=== PATIENT | female | born 1990 | race Caucasian/White ===

== ENCOUNTER 2018-11-28 08:56 | Emergency (ER) | payer OTHER, SELFPAY ==
[2018-11-28] MEDS ORDERED: MORPHINE 4 MG/ML SYR ONE (09:45)
[2018-11-28] MEDS ORDERED: ONDANSETRON 4 MG/2 ML VIAL ONE (09:45)
[2018-11-28] MEDS ORDERED: NA CHLORIDE 0.9% 1,000 ML ONE (09:45)
--- NOTE | 2018-11-28 09:45 | ER ---
Nurse's Notes [facility] Name: Yamile Rahman Age: 28 yrs Sex: Female : 1990 Arrival Date: 11/28/2018 Time: 08:58 Bed 6 Private MD: Diagnosis: Abdominal tenderness;Urinary tract infection, site not specified Presentation: 11/28 09:12 Presenting complaint: Patient states: Pain to umbilical area that began last night with ss nausea. Patient states that the pain is sharp and tender. Transition of care: patient was not received from another setting of care. Onset of symptoms was November 28, 2018. Risk Assessment: Do you want to hurt yourself or someone else? Patient reports no desire to harm self or others. Initial Sepsis Screen: Does the patient meet any 2 criteria? No. Patient's initial sepsis screen is negative. Does the patient have a suspected source of infection? No. Patient's initial sepsis screen is negative. Care prior to arrival: None. 09:12 Method Of Arrival: Ambulatory ss 09:12 Acuity: ANCA 3 ss Historical: - Allergies: 09:14 tramadol; ss - Home Meds: 09:14 None [Active]; ss - PMHx: 09:14 None; ss - PSHx: 09:14 Femur repair; bilateral eyes; ss - Immunization history:: Adult Immunizations up to date. - Social history:: Smoking status: Patient/guardian denies using tobacco. - Ebola Screening: : Patient denies exposure to infectious person Patient denies travel to an Ebola-affected area in the 21 days before illness onset. Screenin:30 Abuse screen: Denies threats or abuse. Denies injuries from another. Nutritional ss screening: No deficits noted. Tuberculosis screening: Never had TB. Fall Risk None identified. Assessment: 09:30 General: Appears uncomfortable, Behavior is calm, cooperative, Denies fever, fatigue, ss chills. Pain: Complains of pain in umbilical area Pain radiates to right lower quadrant Pain currently is 8 out of 10 on a pain scale. Quality of pain is described as sharp, tender, Pain began "last night" Is continuous. Pain: Aggravated by increased activity, repositioning. Neuro: Level of Consciousness is awake, alert, obeys commands, Oriented to person, place, time, situation, Speech is normal. Cardiovascular: Capillary refill < 3 seconds is brisk in bilateral fingers Patient's skin is warm and dry. Respiratory: Airway is patent Respiratory effort is even, unlabored, Respiratory pattern is regular, symmetrical, Denies cough, shortness of breath. GI: Bowel sounds present X 4 quads. Abd is soft X 4 quads Abdomen is tender to palpation in umbilical area and right lower quadrant Guarding noted in umbilical area, suprapubic area and right lower quadrant Reports nausea, Patient currently denies diarrhea, vomiting. : No signs and/or symptoms were reported regarding the genitourinary system. Denies burning with urination, inability to void, urinary frequency. EENT: Oral mucosa is moist. Derm: Skin is intact, is healthy with good turgor, Skin is pink, warm \\T\\ dry. normal. Musculoskeletal: Circulation, motion, and sensation intact. Range of motion: intact in all extremities, Swelling absent. 09:59 Reassessment: Patient appears in no apparent distress at this time. Patient and/or ss family updated on plan of care and expected duration. Pain level reassessed. Patient is alert, oriented x 3, equal unlabored respirations, skin warm/dry/pink. pain is now 4/10. at bedside Patient states feeling better. Patient states symptoms have improved. 11:00 Reassessment: Patient appears in no apparent distress at this time. Patient and/or ss family updated on plan of care and expected duration. Pain level reassessed. Patient is alert, oriented x 3, equal unlabored respirations, skin warm/dry/pink. Vital Signs: 09:14 Resp 16; Weight 65.77 kg; Height 5 ft. 1 in. (154.94 cm); Pain 8/10; ss 09:21 BP 128 / 77; Pulse 75; Resp 16; Temp 98.2(TE); Pulse Ox 99% on R/A; ss 09:59 BP 115 / 67; Pulse 70; Resp 14; Pulse Ox 99% on R/A; Pain 4/10; ss 10:30 BP 111 / 79; Pulse 60; Resp 16; Pulse Ox 100% ; sv 11:04 BP 118 / 69; Pulse 72; Resp 18; Pulse Ox 100% ; sv 09:14 Body Mass Index 27.40 (65.77 kg, 154.94 cm) ED Course: 08:58 Patient arrived in ED. as 09:13 Triage completed. ss 09:14 Rivera Kent MD is Attending Physician. stone 09:14 Arm band placed on right wrist. ss 09:20 Nancy Mosqueda, CRUZ is Primary Nurse. ss 09:29 Radiology exam delayed due to lab results not completed at this time. test mw3 not completed at this time. 09:30 Patient has correct armband on for positive identification. Bed in low position. Call ss light in reach. 09:40 Inserted saline lock: 20 gauge in right antecubital area, using aseptic technique. ss Blood collected. Patient maintains SpO2 saturation greater than 95% on room air. 09:44 Estuardo Sevilla MD is Hospitalizing Provider. stone 09:[address] Scan. sv 10:56 CT completed. Patient tolerated procedure well. Patient moved back from CT. mw3 10:57 CT Abd/Pelvis - IV Contrast Only In Process Unspecified. EDMS 11:00 No provider procedures requiring assistance completed. IV discontinued, intact, ss bleeding controlled, No redness/swelling at site. Pressure dressing applied. Administered Medications: 09:38 Drug: NS 0.9% 1000 ml Route: IV; Rate: 1 bolus; Site: right antecubital; ss 10:38 Follow up: IV Status: Completed infusion; IV Intake: 1000ml ss 09:42 Drug: Zofran 4 mg Route: IVP; Site: right antecubital; ss 09:57 Follow up: Response: Nausea is decreased ss 09:43 Drug: morphine 4 mg Route: IVP; Site: right antecubital; ss 09:58 Follow up: Response: Pain is decreased ss 09:58 Drug: Rocephin 1 grams Route: IV; Rate: per protocol; Site: right antecubital; ss 10:03 Follow up: IV Status: Completed infusion ss Intake: 10:38 IV: 1000ml; Total: 1000ml. ss Outcome: 09:45 Decision to Hospitalize by Provider. stone 11:00 Discharged to home ambulatory, with family. ss 11:00 Condition: good 11:00 Discharge instructions given to patient, family, Instructed on discharge instructions, follow up and referral plans. medication usage, Demonstrated understanding of instructions, follow-up care, medications, Prescriptions given X 2. 11:38 Discharge ordered by . stone 11:53 Patient left the ED. ss Signatures: Dispatcher [employer] Kandi Scales RN RN sv Anderson, Corey, MD MD cha Martinez, Amelia as Smirch, Shelby, RN RN Gloria Espinal mw3 Corrections: (The following items were deleted from the chart) 09:21 09:12 Presenting complaint: Patient states: Pain to umbilical area that began this morning with nausea. Patient states that the pain is sharp and tender. 09:59 09:21 BP 128 / 77; Pulse 75bpm; Resp 16bpm; Temp 98.2F Temporal; [facility]
--- NOTE | 2018-11-28 09:46 | EDPHYS ---
Physician Documentation [facility] Name: Yamile Rahman Age: 28 yrs Sex: Female : 1990 Arrival Date: 11/28/2018 Time: 08:58 Bed 6 Private MD: ED Physician Rivera Kent HPI: 11/28 09:23 This 28 yrs old Female presents to ER via Ambulatory with complaints of stone Abdominal Pain, Headache. 09:23 The patient complains of pain to the forehead, left frontal area and right frontal stone area. The patient describes the headache as aching. Historical: - Allergies: 09:14 tramadol; ss - Home Meds: 09:14 None [Active]; ss - PMHx: 09:14 None; ss - PSHx: 09:14 Femur repair; bilateral eyes; ss - Immunization history:: Adult Immunizations up to date. - Social history:: Smoking status: Patient/guardian denies using tobacco. - Ebola Screening: : Patient denies exposure to infectious person Patient denies travel to an Ebola-affected area in the 21 days before illness onset. ROS: 09:24 Constitutional: Negative for fever, chills, and weight loss, Eyes: Negative for injury, stone pain, redness, and discharge, ENT: Negative for injury, pain, and discharge, Neck: Negative for injury, pain, and swelling, Cardiovascular: Negative for chest pain, palpitations, and edema, Respiratory: Negative for shortness of breath, cough, wheezing, and pleuritic chest pain, Back: Negative for injury and pain, : Negative for injury, bleeding, discharge, and swelling, MS/Extremity: Negative for injury and deformity, Skin: Negative for injury, rash, and discoloration, Neuro: Negative for headache, weakness, numbness, tingling, and seizure, Psych: Negative for depression, anxiety, suicide ideation, homicidal ideation, and hallucinations, Allergy/Immunology: Negative for hives, rash, and allergies, Endocrine: Negative for neck swelling, polydipsia, polyuria, polyphagia, and marked weight changes. 09:24 Abdomen/GI: Positive for abdominal pain, of the right lower quadrant and left lower quadrant. Exam: 09:24 Constitutional: This is a well developed, well nourished patient who is awake, alert, stone and in no acute distress. Head/Face: Normocephalic, atraumatic. Eyes: Pupils equal round and reactive to light, extra-ocular motions intact. Lids and lashes normal. Conjunctiva and sclera are non-icteric and not injected. Cornea within normal limits. Periorbital areas with no swelling, redness, or edema. ENT: Nares patent. No nasal discharge, no septal abnormalities noted. Tympanic membranes are normal and external auditory canals are clear. Oropharynx with no redness, swelling, or masses, exudates, or evidence of obstruction, uvula midline. Mucous membranes moist. Neck: Trachea midline, no thyromegaly or masses palpated, and no cervical lymphadenopathy. Supple, full range of motion without nuchal rigidity, or vertebral point tenderness. No Meningismus. Chest/axilla: Normal chest wall appearance and motion. Nontender with no deformity. No lesions are appreciated. Cardiovascular: Regular rate and rhythm with a normal S1 and S2. No gallops, murmurs, or rubs. Normal PMI, no JVD. No pulse deficits. Respiratory: Lungs have equal breath sounds bilaterally, clear to auscultation and percussion. No rales, rhonchi or wheezes noted. No increased work of breathing, no retractions or nasal flaring. Back: No spinal tenderness. No costovertebral tenderness. Full range of motion. Skin: Warm, dry with normal turgor. Normal color with no rashes, no lesions, and no evidence of cellulitis. MS/ Extremity: Pulses equal, no cyanosis. Neurovascular intact. Full, normal range of motion. Neuro: Awake and alert, GCS 15, oriented to person, place, time, and situation. Cranial nerves II-XII grossly intact. Motor strength 5/5 in all extremities. Sensory grossly intact. Cerebellar exam normal. Normal gait. Psych: Awake, alert, with orientation to person, place and time. Behavior, mood, and affect are within normal limits. 09:24 Abdomen/GI: Inspection: abdomen appears normal, Bowel sounds: normal, Palpation: moderate abdominal tenderness, in the right lower quadrant and left lower quadrant, Liver: no appreciated palpable abnormalities, Hernia: not appreciated. Vital Signs: 09:14 Resp 16; Weight 65.77 kg; Height 5 ft. 1 in. (154.94 cm); Pain 8/10; ss 09:21 BP 128 / 77; Pulse 75; Resp 16; Temp 98.2(TE); Pulse Ox 99% on R/A; ss 09:59 BP 115 / 67; Pulse 70; Resp 14; Pulse Ox 99% on R/A; Pain 4/10; ss 10:30 BP 111 / 79; Pulse 60; Resp 16; Pulse Ox 100% ; sv 11:04 BP 118 / 69; Pulse 72; Resp 18; Pulse Ox 100% ; sv 09:14 Body Mass Index 27.40 (65.77 kg, 154.94 cm) ss MDM: 09:14 Patient medically screened. [facility] 09:24 Data reviewed: vital signs, nurses notes, lab test result(s), radiologic studies, CT stone scan. 11/28 09:23 Order name: Basic Metabolic Panel; Complete Time: 10:41 [facility] 11/28 09:23 Order name: CBC with Diff; Complete Time: 10:12 [facility] 11/28 09:23 Order name: Creatinine for Radiology; Complete Time: 10:12 [facility] 11/28 09:23 Order name: Hepatic Function; Complete Time: 10:41 [facility] 11/28 09:23 Order name: Lipase; Complete Time: 10:41 [facility] 11/28 09:23 Order name: Urine Dipstick--Ancillary (enter results); Complete Time: 10:12 11/28 09:23 Order name: IV Saline Lock; Complete Time: 09:44 [facility] 11/28 09:23 Order name: CT Abd/Pelvis - IV Contrast Only; Complete Time: 11:37 [facility] 11/28 09:23 Order name: Urine --Ancillary (enter results); Complete Time: 10:12 11/28 09:43 Order name: Urine Culture [facility] 11/28 09:23 Order name: Labs collected and sent; Complete Time: 09:44 [facility] 11/28 09:23 Order name: Urine Dipstick-Ancillary (obtain specimen); Complete Time: 09:29 [facility] 11/28 09:23 Order name: Urine Test (obtain specimen); Complete Time: 09:29 [facility] Administered Medications: 09:38 Drug: NS 0.9% 1000 ml Route: IV; Rate: 1 bolus; Site: right antecubital; 10:38 Follow up: IV Status: Completed infusion; IV Intake: 1000ml 09:42 Drug: Zofran 4 mg Route: IVP; Site: right antecubital; ss 09:57 Follow up: Response: Nausea is decreased ss 09:43 Drug: morphine 4 mg Route: IVP; Site: right antecubital; ss 09:58 Follow up: Response: Pain is decreased ss 09:58 Drug: Rocephin 1 grams Route: IV; Rate: per protocol; Site: right antecubital; ss 10:03 Follow up: IV Status: Completed infusion ss Disposition: 11/28/18 11:38 Discharged to Home. Impression: Abdominal tenderness, Urinary tract infection, site not specified. - Condition is Stable. - Discharge Instructions: Abdominal Pain, Adult, Urinary Tract Infection, Adult, Abdominal Pain, Adult, [id number]. - Prescriptions for Tylenol- Codeine #3 300-30 mg Oral Tablet - take 2 tablets by ORAL route every 6 hours As needed; 20 tablet. Cipro 500 mg Oral Tablet - take 1 tablet by ORAL route every 12 hours for 7 days; 14 tablet. - Medication Reconciliation Form, Thank You Letter, Antibiotic Education, Prescription Opioid Use form. - Follow up: Private Physician; When: 2 - 3 days; Reason: Recheck today's complaints, Continuance of care, Re-evaluation by your physician. - Problem is new. - Symptoms have improved. Signatures: Dispatcher [employer] EDMS Rivera Kent MD MD cha Smirch, Shelby, RN RN Corrections: (The following items were deleted from the chart) 10:00 09:45 Hospitalization Ordered by Estuardo Sevilla MD for Inpatient Admission. Preliminary [facility] diagnosis is Abdominal tenderness; Unspecified kidney failure; Urinary tract infection, site not specified; Elevated white blood cell count, unspecified. Bed requested for Telemetry/MedSurg (Inpatient). Status is Inpatient Admission. Condition is Fair. Problem is new. Symptoms have improved. UTI on Admission? Yes. [facility] 11:53 11:38 11/28/2018 11:38 Discharged to Home. Impression: Abdominal tenderness; Urinary ss tract infection, site not specified. Condition is Stable. Discharge Instructions: Abdominal Pain, Adult, Urinary Tract Infection, Adult, Abdominal Pain, Adult, [id number]. Prescriptions for Tylenol-Codeine #3 300-30 mg Oral Tablet - take 2 tablets by ORAL route every 6 hours As needed; 20 tablet, Cipro 500 mg Oral Tablet - take 1 tablet by ORAL route every 12 hours for 7 days; 14 tablet. and Forms are Medication Reconciliation Form, Thank You Letter, Antibiotic Education, Prescription Opioid Use. Follow up: Private Physician; When: 2 - 3 days; Reason: Recheck today's complaints, Continuance of care, Re-evaluation by your physician. Problem is new. Symptoms have improved. stone
[2018-11-28 09:58] LABS: Absolute Lymphocytes (CBC) 1.8 K/uL (0.7-4.9); Basophils % 0.7 % (0-1.3); Hematocrit 37.1 % (36.0-45.0); MPV 10.4 fL (7.6-11.3); RBC Red Blood Cell Count 4.42 M/uL (3.86-4.86)
[2018-11-28 10:01] LABS: Urine Blood TRACE (NEG); Urine Glucose NEGATIVE (NEG); Urine Protein NEGATIVE (NEG); Urine Specific Gravity 1.025 (1.005-1.030)
[2018-11-28] MEDS ORDERED: CEFTRIAXONE/SWI 1gm 1 GM/10 ML SYR ONE (10:09)
[2018-11-28 10:13] LABS: Albumin 3.5 g/dL (3.4-5.0); Bilirubin Direct 0.1 mg/dL (0-0.2); Bilirubin Total 0.5 mg/dL (0.2-1.0); Potassium 3.8 mmol/L (3.5-5.1); Protein, Total 6.8 g/dL (6.4-8.2)
--- NOTE | 2018-11-28 11:35 | RAD REPORT ---
EXAM DESCRIPTION: CT - Abdomen Pelvis W Contrast - 11/28/2018 10:56 am CLINICAL HISTORY: Abdominal pain COMPARISON: none. TECHNIQUE: Computed axial tomography of the abdomen pelvis was obtained. 100 cc Isovue-300 was admin istered intravenously. Oral contrast was not requested which limits evaluation of bowel. All CT scans are performed using dose optimization technique as appropriate and may include automated exposure control or mA/KV adjustment according to patient size. FINDINGS: The liver, spleen, pancreas, adrenal and kidneys appear unremarkable. There is no evidence of diverticulitis. Portions of the appendix are seen and are normal caliber. No adnexal mass. Small amount of free may be physiologic 16 millimeter round structure left inguinal region IMPRESSION: 16 millimeter round structure left inguinal region may represent a lymph node. Otherwise, no acute abnormality is seen
== END 2018-11-28 11:53 | disposition home or self-care (01) ==
LOC: ER 08:56
DX: N39.0 Urinary tract infection, site not specified (principal); Z88.5 Allergy status to narcotic agent
CPT/HCPCS: 36415; 74177; 80048; 80076; 81003; 81025; 83690; 85025; 87086; 87088; 96361; 96374; 96375; 99285; J0696; J2405; J7030; Q9967

== ENCOUNTER 2021-03-04 01:27 | Emergency (ER) | payer SELFPAY ==
[2021-03-04 02:13] LABS: Absolute Lymphocytes (CBC) 2.8 K/uL (0.7-4.9); Basophils % 0.6 % (0-1.3); Lymphocytes % 50.4 % (15.3-44.8); MPV 9.3 fL (7.6-11.3); RBC Red Blood Cell Count 4.54 M/uL (3.86-4.86)
[2021-03-04 02:20] LABS: Albumin 3.8 g/dL (3.4-5.0); Bilirubin Total 0.2 mg/dL (0.2-1.0); Potassium 3.5 mmol/L (3.5-5.1); Protein, Total 7.2 g/dL (6.4-8.2)
[2021-03-04] MEDS ORDERED: NA CHLORIDE 0.9% 1,000 ML ONE (02:53)
[2021-03-04] MEDS ORDERED: MECLIZINE HCL 12.5 MG TAB ONE (02:53)
--- NOTE | 2021-03-04 03:15 | ER ---
Nurse's Notes [facility] Name: Yamile Rahman Age: 30 yrs Sex: Female : 1990 Arrival Date: 03/04/2021 Time: 01:29 Bed 6 Private MD: Diagnosis: Other peripheral vertigo Presentation: 03/04 01:46 Chief complaint: Patient states: Sudden onset of dizziness about 1 hour ago while at [employer], reports aggravated by movement of head, blurred vision; Denies any chest pain, nausea, no ETOH tonight. Coronavirus screen: At this time, the client does not indicate any symptoms associated with coronavirus-19. Ebola Screen: No symptoms or risks identified at this time. Initial Sepsis Screen: Does the patient meet any 2 criteria? No. Patient's initial sepsis screen is negative. Does the patient have a suspected source of infection? No. Patient's initial sepsis screen is negative. Risk Assessment: Do you want to hurt yourself or someone else? Patient reports no desire to harm self or others. Onset of symptoms was March 04, 2021 at 00:30. 01:46 Method Of Arrival: Wheelchair lp1 01:46 Acuity: ANCA 3 lp1 03:05 Note Pt states when she moves her head "It feels like I'm falling" No change is df1 symptoms after Meclizine was given. 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 - Social history:: Smoking status: Patient denies any tobacco usage or history of. Patient/guardian denies using alcohol. Screenin:48 Abuse screen: Denies threats or abuse. Denies injuries from another. Nutritional lp1 screening: No deficits noted. Tuberculosis screening: No symptoms or risk factors identified. Fall Risk None identified. Assessment: 01:49 General: Appears uncomfortable, Behavior is anxious. Pain: Denies pain. Neuro: Level of lp1 Consciousness is awake, alert, obeys commands, Oriented to person, place, time, situation, Moves all extremities. Full function Gait is unsteady, Speech is normal, Pupils are PERRLA, Reports blurred vision dizziness, since 1 hour ago Denies weakness paresthesias headache. Cardiovascular: Patient's skin is warm and dry. Respiratory: Respiratory effort is even, unlabored. GI: No signs and/or symptoms were reported involving the gastrointestinal system. : No signs and/or symptoms were reported regarding the genitourinary system. EENT: No signs and/or symptoms were reported regarding the EENT system. Derm: Skin is pink, warm \\T\\ dry. Musculoskeletal: No deficits noted. 03:20 Reassessment: Patient appears in no apparent distress at this time. Patient reports lp1 decrease in dizziness Patient states feeling better. Patient states symptoms have improved. Vital Signs: 01:46 BP 128 / 87; Pulse 67; Resp 16; Temp 98(O); Pulse Ox 99% on R/A; Weight 73.94 kg (R); lp1 Height 5 ft. 7 in. (170.18 cm); Pain 0/10; 02:30 BP 119 / 80; Pulse 69; Resp 16; Pulse Ox 100% on R/A; lp1 03:05 BP 117 / 71; Pulse 72; Resp 18; Pulse Ox 100% on R/A; df1 03:19 BP 118 / 80; Pulse 65; Resp 16; Pulse Ox 100% on R/A; lp1 01:46 Body Mass Index 25.53 (73.94 kg, 170.18 cm) lp1 ED Course: 01:29 Patient arrived in ED. bp1 01:37 Linda Castelan MD is Attending Physician. sp3 01:45 Emilia Maldonado, CRUZ is Primary Nurse. lp1 01:48 Triage completed. lp1 01:48 Arm band placed on. lp1 01:49 Patient has correct armband on for positive identification. lp1 01:57 Inserted saline lock: 22 gauge in right forearm, using aseptic technique. Blood ds4 collected. 02:34 CT Head Brain wo Cont In Process Unspecified. EDMS 03:20 No provider procedures requiring assistance completed. IV discontinued, No lp1 redness/swelling at site. Pressure dressing applied. Administered Medications: 01:57 Drug: NS 0.9% 1000 ml Route: IV; Rate: 1 bolus; Site: right antecubital; lp1 03:20 Follow up: IV Status: Completed infusion; IV Intake: 700ml lp1 01:59 Drug: Meclizine 25 mg Route: PO; lp1 03:20 Follow up: Response: Marked relief of symptoms lp1 Intake: 03:20 IV: 700ml; Total: 700ml. lp1 Outcome: 03:14 Discharge ordered by . sp3 03:21 Discharged to home via wheelchair, with significant other. lp1 03:21 Condition: good 03:21 Discharge instructions given to patient, Instructed on discharge instructions, follow up and referral plans. medication usage, Demonstrated understanding of instructions, follow-up care, medications, Prescriptions given X 1. 03:21 Patient left the ED. lp1 Signatures: Dispatcher [employer] EDEmilia Downing RN RN lp1 Patrick Welch ds4 Yazmin Jones Setul, MD MD sp3 Irene Madrid df1 Corrections: (The following items were deleted from the chart) 01:58 01:57 Meclizine 25 mg PO lp1 lp1
--- NOTE | 2021-03-04 03:15 | EDPHYS ---
Physician Documentation [facility] Name: Yamile Rahman Age: 30 yrs Sex: Female : 1990 Arrival Date: 03/04/2021 Time: 01:29 Bed 6 Private MD: ED Physician Linda Castelan HPI: 03/04 01:49 This 30 yrs old Female presents to ER via Wheelchair with complaints of sp3 Dizziness. 01:49 30-year-old female with a history of iron deficient anemia not currently on any sp3 medications presents with approximate 3-hour history of vertiginous symptoms after being at a green party where she did not consume alcohol and did complete a normal meal. Patient denies any other current symptoms though she did have a prior headache earlier today which is mostly resolved. Currently she has no headache, neck pain, URI symptoms, fever, chest pain, back pain, shortness of breath, abdominal pain, nausea, vomiting, diarrhea, neurological symptoms, sensory deficits, known sick contacts, travel history, trauma, any other review of systems at this time. Remainder of review of systems are negative. Vertigo symptoms are worse upon movement. Patient has no history of prior vertigo and no family history of intracranial abnormalities including cancer and/or mass. Patient denies ringing in her years or any other vestibular complaints.. 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 - Social history:: Smoking status: Patient denies any tobacco usage or history of. Patient/guardian denies using alcohol. ROS: 01:50 Constitutional: Negative for fever, chills, and weight loss, Eyes: Negative for injury, sp3 pain, redness, and discharge, ENT: Negative for injury, pain, and discharge, Neck: Negative for injury, pain, and swelling, Cardiovascular: Negative for chest pain, palpitations, and edema, Respiratory: Negative for shortness of breath, cough, wheezing, and pleuritic chest pain, Abdomen/GI: Negative for abdominal pain, nausea, vomiting, diarrhea, and constipation, Back: Negative for injury and pain, : Negative for injury, bleeding, discharge, and swelling, MS/Extremity: Negative for injury and deformity, Skin: Negative for injury, rash, and discoloration, Psych: Negative for depression, anxiety, suicide ideation, homicidal ideation, and hallucinations, Allergy/Immunology: Negative for hives, rash, and allergies. 01:50 All other systems are negative. Exam: 01:51 Constitutional: This is a well developed, well nourished patient who is awake, alert, sp3 and in no acute distress. Head/Face: Normocephalic, atraumatic. Eyes: Pupils equal round and reactive to light, extra-ocular motions intact. Lids and lashes normal. Conjunctiva and sclera are non-icteric and not injected. Cornea within normal limits. Periorbital areas with no swelling, redness, or edema. ENT: Nares patent. No nasal discharge, no septal abnormalities noted. External auditory canals are clear. Oropharynx with no redness, swelling, or masses, exudates, or evidence of obstruction, uvula midline. Mucous membranes moist. Neck: Trachea midline, no thyromegaly or masses palpated, and no cervical lymphadenopathy. Supple, full range of motion without nuchal rigidity, or vertebral point tenderness. No Meningismus. Chest/axilla: Normal chest wall appearance and motion. Nontender with no deformity. No lesions are appreciated. Cardiovascular: Regular rate and rhythm with a normal S1 and S2. No gallops, murmurs, or rubs. Normal PMI, no JVD. No pulse deficits. Respiratory: Lungs have equal breath sounds bilaterally, clear to auscultation and percussion. No rales, rhonchi or wheezes noted. No increased work of breathing, no retractions or nasal flaring. Abdomen/GI: Soft, non-tender, with normal bowel sounds. No distension or tympany. No guarding or rebound. No evidence of tenderness throughout. Back: No spinal tenderness. No costovertebral tenderness. Full range of motion. Skin: Warm, dry with normal turgor. Normal color with no rashes, no lesions, and no evidence of cellulitis. MS/ Extremity: Pulses equal, no cyanosis. Neurovascular intact. Full, normal range of motion. Psych: Awake, alert, with orientation to person, place and time. Behavior, mood, and affect are within normal limits. 01:51 Neuro: Normal neurological exam with horizontal nystagmus noted. Pupils are equal round reactive light and remaining cranial nerves II through XII are intact. Motor and sensory including pain and temperature are grossly intact all extremities. Patient is negative Romberg and is ambulatory however she has subjective vertigo dizziness upon movement.. Vital Signs: 01:46 BP 128 / 87; Pulse 67; Resp 16; Temp 98(O); Pulse Ox 99% on R/A; Weight 73.94 kg (R); lp1 Height 5 ft. 7 in. (170.18 cm); Pain 0/10; 02:30 BP 119 / 80; Pulse 69; Resp 16; Pulse Ox 100% on R/A; lp1 03:05 BP 117 / 71; Pulse 72; Resp 18; Pulse Ox 100% on R/A; df1 03:19 BP 118 / 80; Pulse 65; Resp 16; Pulse Ox 100% on R/A; lp1 01:46 Body Mass Index 25.53 (73.94 kg, 170.18 cm) lp1 MDM: 01:40 Patient medically screened. sp3 01:52 Data reviewed: vital signs, nurses notes. ED course: 30-year-old female likely with sp3 peripheral vertigo. At this time I am not highly suspicious for intracranial hemorrhage, meningitis, infection, otitis media, otitis externa, CVA, metabolic derangement, any other critical findings at this time. If improved will discharge on Antivert with PCP follow-up. Included in work-up are laboratory tests, urine , UA, CT scan of the head, and general observation.. 03:13 ED course: Hemoglobin came in at [address] scan of the head is normal. Patient's sp3 vertigo is improved after taking meclizine p.o. which is diagnostic in itself for peripheral vertigo. At this time I do not believe patient has central vertigo we will discharge her home with a prescription for Antivert. I have advised her to take it easy tomorrow and not exert himself as well as not ambulate without assistance from her family. Patient acknowledged and has no further questions.. 03/04 01:49 Order name: CBC with Diff; Complete Time: 03:05 sp3 03/04 01:49 Order name: CMP; Complete Time: 03:05 sp3 03/04 01:49 Order name: CT Head Brain wo Cont sp3 03/04 01:49 Order name: IV; Complete Time: 01:57 sp3 Administered Medications: 01:57 Drug: NS 0.9% 1000 ml Route: IV; Rate: 1 bolus; Site: right antecubital; lp1 03:20 Follow up: IV Status: Completed infusion; IV Intake: 700ml lp1 01:59 Drug: Meclizine 25 mg Route: PO; lp1 03:20 Follow up: Response: Marked relief of symptoms lp1 Disposition Summary: 03/04/21 03:14 Discharge Ordered Location: Home sp3 Condition: Stable sp3 Diagnosis - Other peripheral vertigo sp3 Followup: sp3 - With: Private Physician - When: As needed - Reason: Recheck today's complaints Discharge Instructions: - Discharge Summary Sheet sp3 - Vertigo sp3 Forms: - Medication Reconciliation Form sp3 - Thank You Letter sp3 - Antibiotic Education sp3 - Prescription Opioid Use sp3 Prescriptions: - Meclizine 25 mg Oral Tablet - take 1 tablet by ORAL route every 8 hours As needed; 30 tablet; Refills: 0, sp3 Product Selection Permitted Signatures: Dispatcher [employer] Emilia Franklin RN RN lp1 Linda Castelan MD MD sp3
[2021-03-04 03:28] VITALS: TEMP 98
[2021-03-04 03:29] VITALS: O2SAT 100
[2021-03-04 03:32] VITALS: BP 118/80
--- NOTE | 2021-03-05 10:31 | RAD REPORT ---
EXAM DESCRIPTION: CT - Head Brain Wo Cont - 03/04/2021 5:04 am CLINICAL HISTORY: 30 years, Female, DIZZINESS COMPARISON: None. FINDINGS: Multiple transaxial tomograms of the brain were obtained from the base of the skull to the vertex without contrast. 2-D multiplanar reformats and the coronal and sagittal plane were performed and reviewed. This exam was performed according to our departmental dose-optimization protocol, which includes auto mated exposure control, adjustment of the mA and/or kV according to patient size and/or use of iterat riley reconstruction technique. Brain parenchyma as well as the jeong and white matter differentiation demonstrate to be unremarkable. There is no midline shift and/or mass effect. There is no evidence for acute hemorrhage and/or infar ction. Lateral ventricles and cisterns displace normal appearance. No intra or extra axial fluid collections were seen. The calvarium is intact with no evidence for fracture. The visualized portions of the paranasal sinuses and orbits demonstrate to be clear. IMPRESSION: NO ACUTE INTRACRANIAL HEMORRHAGE. UNREMARKABLE CT SCAN OF THE HEAD WITHOUT CONTRAST. Electronically signed by: Emmett Hernandez MD 03/04/2021 2:49 AM CDT Due to temporary technical issues with the PACS/Fluency reporting system, reports are being signed by the in house radiologists without review as a courtesy to insure prompt reporting. The interpreting radiologist is fully responsible for the content of the report.
== END 2021-03-04 03:21 | disposition home or self-care (01) ==
LOC: ER 01:27
DX: H81.399 Other peripheral vertigo, unspecified ear (principal); Z88.5 Allergy status to narcotic agent
CPT/HCPCS: 36415; 70450; 80053; 85025; 96360; 99284; J7030